=== PATIENT | male | born 1995 | race Hispanic/Latino ===

== ENCOUNTER 2019-07-08 10:47 | Outpatient (CLI) | payer BC ==
--- NOTE | 2019-07-08 12:07 | ULT ---
US Abdominal History: Abdominal pain Comparison: None. Findings: Real-time grayscale and color evaluation of the abdomen was performed. Diffuse increased hepatic echotexture. Common bile duct not well seen. No intrahepatic biliary dilata tion. Cholelithiasis without cholecystitis. Right kidney measures 12.4 x 6.7 x 6.5 cm and the left kidney measures 11.3 x 6.5 x 5.8 cm. No renal mass, hydronephrosis, or abnormal calcifications. Spleen measures 9.8 cm in length. Visualized portions of the aorta, IVC, and pancreas are unremarkable. Impression: 1. Diffuse increased hepatic echotexture suggesting steatosis. 2. Cholelithiasis without cholecystitis.
== END 2019-07-08 10:48 | disposition home or self-care (01) ==
LOC: SCSULT 10:47
PROVIDERS: ATTEND Family Medicine
DX: R74.8 Abnormal levels of other serum enzymes (principal); K80.20 Calculus of gallbladder without cholecystitis without obstruction
CPT/HCPCS: 76700